=== PATIENT | female | born 1930 | race American Indian/Alaskan Native ===

== ENCOUNTER → 2017-05-31 | Outpatient (CLI) | payer MEDICARE, OTHER ==
--- NOTE | 2017-05-31 09:31 | PCVCIMAG ---
APPROVED REPORT Indications Stenosis Risk Factors Hypertension: Hyperlipidemia Surgery/Intervention Endarterectomy: right left Doppler Spectral Velocity Analysis PSV / EDVPSV / EDV ECA (R) 112 / 4 cm/sECA (L) 138 / 4 cm/s dICA (R) 94 / 19 cm/sdICA (L) 115 / 19 cm/s Parvez (R) 91 / 16 cm/smICA (L) 73 / 14 cm/s pICA (R) 98 / 9 cm/spICA (L) 89 / 10 cm/s Bulb (R) 99 / 7 cm/sBulb (L) 74 / 13 cm/s dCCA (R) 103 / 9 cm/sdCCA (L) 98 / 13 cm/s mCCA (R) 91 / 9 cm/smCCA (L) 90 / 9 cm/s Vert (R) 34 / 4 cm/sVert (L) 44 / 9 cm/s ICA/CCA 0.95ICA/CCA 1.17 Basic Measurements Blood Pressure: Pulses: Right Left RightLeft Brachial(Sitting) 128/58mmHgTemporal Real Time B-Mode Imaging Vert. (R)AntegradeVert. (L)Antegrade Findings The right carotid bulb has moderate calcified plaque. The right proximal internal carotid artery shows <40% stenosis. The right common carotid artery shows no significant stenosis. The right external carotid artery shows no significant stenosis. The left carotid bulb has moderate calcified plaque. The left proximal internal carotid artery shows <40% stenosis. The left common carotid artery shows no significant stenosis. The left external carotid artery shows no significant stenosis. Conclusion 1. Moderate plaquing bilaterally (<40% stenoses) 2. Antegrade vertebral flow 3. Changes consistent with bilateral carotid endarterectomies
--- NOTE | 2017-06-04 09:24 | PCVCIMAG ---
APPROVED REPORT Study performed: 05/31/2017 09:43:01 EXAM: Comprehensive 2D, Doppler, and color-flow Echocardiogram Patient Location: Echo lab Status: routine BSA: 1.74 HR: 76 bpmBP: 128/56 mmHg Rhythm: NSR Other Information Study Quality: Good Risk Factors: Cardiac Risk Factors: Hyperlipidemia, HTN, DM Indications Mitral Valve Disease ESRD 2D Dimensions LVEF(%): 70.00 (>50%) IVSd: 11.84 (7-11mm)LVOT Diam: 18.58 (18-24mm) LVDd: 39.76 mm PWd: 11.43 (7-11mm)Ascending Ao: 26.29 (22-36mm) LVDs: 22.01 (25-40mm) Left Atrium: 42.62 (27-40mm) Aortic Root: 22.99 mm LV Single Plane 4CH: 72.14 % LV Single Plane 2CH: 70.66 %Baltazar's LVEF: 71.40 % Biplane EF: 73.1 % Volumes Left Atrial Volume (Systole) Single Plane 4CH: 64.51 mLSingle Plane 2CH: 62.31 mL LA ESV Index: 38.00 mL/m2 Aortic Valve AoV Peak Eric.: 1.89 m/s AO Peak Gr.: 14.60 mmHgLVOT Max P.89 mmHg LVOT Max V: 0.94 m/s SANIA Vmax: 1.34 cm2 Mitral Valve MV Peak Gr.: 26.41 mmHg MV Mean Gr.: 14.21 mmHg MV Decel. Time: 355.83 ms MV Max Eric.: 2.55 m/s MV Mean Eric.: 1.79 m/s MV VTI: 704.36 mm MV PHT: 104.49 ms MVA (PHT): 2.11 cm2 TDI Medial E' Eric.: 0.05 m/s Lateral E' Eric.: 0.05 m/s Pulmonary Valve PV Peak Eric.: 1.09 m/sPV Peak Gr.: 4.82 mmHg Pulmonary Vein P Vein S: 0.66 m/sP Vein A: 0.34 m/s P Vein D: 0.45 m/sP Vein A Dur.: 114.2 msec P Vein S/D Ratio: 1.47 Tricuspid Valve RAP Estimate: 5.00 mmHg Left Ventricle The left ventricle is normal size. There is normal LV segmental wall motion. Borderline concentric left ventricular hypertrophy. Left ventricular systolic function is normal. The left ventricular ejection fraction is within the normal range. LVEF is 70%. This study is not technically sufficient to allow evaluation of the LV diastolic function. Right Ventricle The right ventricle is normal size. The right ventricular systolic function is normal. Atria Left atrium is mildly dilated. The right atrium size is normal. Aortic Valve Trileaflet aortic valve, moderately calcified No aortic regurgitation is present. There is no aortic valvular stenosis. Mitral Valve Severe mitral annular calcification. Mitral leaflet calcification Mild mitral regurgitation. Calculated mitral valve area is 2.1 cm2 with maximum pressure gradient of 26 mmHg and mean pressure gradient of 14 mmHg. Tricuspid Valve The tricuspid valve is normal in structure. There is no tricuspid valve regurgitation noted. Pulmonic Valve The pulmonary valve is normal in structure. There is no pulmonic valvular regurgitation. Great Vessels The aortic root is normal in size. IVC is normal in size and collapses with >50% inspiration Pericardium There is no pericardial effusion. <Conclusion> Left ventricular systolic function is normal. There is normal LV segmental wall motion. LVEF 70%. Left atrium is mildly dilated. Trileaflet aortic valve, moderately calcified. No aortic stenosis or insufficiency Severe mitral annular calcification. Mitral leaflet calcification. Moderately severe to severe mitral stenosis. Mild insufficiency Calculated mitral valve area is 2.1 cm2 with maximum pressure gradient of 26 mmHg and mean pressure gradient of 14 mmHg. Pulmonary artery pressure could not be reliably ascertained There is no pericardial effusion.
== END | disposition home or self-care (01) ==
LOC: PCVCIMAG 08:40
PROVIDERS: ATTEND Internal Medicine
DX: I65.23 Occlusion and stenosis of bilateral carotid arteries (principal); I34.0 Nonrheumatic mitral (valve) insufficiency; E78.5 Hyperlipidemia, unspecified; I12.0 Hypertensive chronic kidney disease with stage 5 chronic kidney disease or end stage renal disease; E11.22 Type 2 diabetes mellitus with diabetic chronic kidney disease; N18.5 Chronic kidney disease, stage 5; E03.9 Hypothyroidism, unspecified; I73.9 Peripheral vascular disease, unspecified; Z79.82 Long term (current) use of aspirin; Z79.899 Other long term (current) drug therapy; Z90.49 Acquired absence of other specified parts of digestive tract
CPT/HCPCS: 93306; 93880

== ENCOUNTER → 2017-06-14 | Outpatient (CLI) | payer MEDICARE | END | disposition home or self-care (01) | LOC: PCVCCLINIC 11:18 | PROVIDERS: ATTEND Internal Medicine | DX: I34.2 Nonrheumatic mitral (valve) stenosis (principal); I65.23 Occlusion and stenosis of bilateral carotid arteries; I12.0 Hypertensive chronic kidney disease with stage 5 chronic kidney disease or end stage renal disease; N18.5 Chronic kidney disease, stage 5; E78.5 Hyperlipidemia, unspecified; E03.9 Hypothyroidism, unspecified; I73.9 Peripheral vascular disease, unspecified; Z79.82 Long term (current) use of aspirin; Z79.899 Other long term (current) drug therapy; Z90.49 Acquired absence of other specified parts of digestive tract; Z90.12 Acquired absence of left breast and nipple; Z88.8 Allergy status to other drugs, medicaments and biological substances | CPT/HCPCS: G0463 ==

== ENCOUNTER → 2018-06-18 | Outpatient (CLI) | payer MEDICARE ==
--- NOTE | 2018-06-18 09:15 | PCVCIMAG ---
APPROVED REPORT Indications Stenosis Dizziness and Vertigo Risk Factors Hypertension: Hyperlipidemia Surgery/Intervention Endarterectomy: right left Doppler Spectral Velocity Analysis PSV / EDVPSV / EDV ECA (R) 104 / 2 cm/sECA (L) 157 / 6 cm/s dICA (R) 86 / 14 cm/sdICA (L) 104 / 20 cm/s Parvez (R) 94 / 14 cm/smICA (L) 104 / 18 cm/s pICA (R) 98 / 11 cm/spICA (L) 102 / 14 cm/s Bulb (R) 81 / 5 cm/sBulb (L) 81 / 11 cm/s dCCA (R) 77 / 10 cm/sdCCA (L) 100 / 11 cm/s mCCA (R) 83 / 2 cm/smCCA (L) 92 / 10 cm/s Vert (R) 50 / 0 cm/sVert (L) 34 / 5 cm/s ICA/CCA 1.27ICA/CCA 1.04 Basic Measurements Blood Pressure: Pulses: Right Left RightLeft Brachial(Sitting) 134/60mmHgTemporal Real Time B-Mode Imaging Vert. (R)AntegradeVert. (L)Antegrade Findings The right carotid bulb has mild plaque. The right proximal internal carotid artery shows <40% stenosis, prior CEA The right common carotid artery shows no significant stenosis. The right external carotid artery shows no significant stenosis. The left carotid bulb has mild-moderate plaque. The left proximal internal carotid artery shows <40% stenosis, prior CEA. The left common carotid artery shows no significant stenosis. The left external carotid artery shows no significant stenosis. Conclusion 1. Right internal carotid artery stenosis (<40%) 2. Left internal carotid artery stenosis (<40%) 3. Bilteral carotid endarterectomies 4. Antegrade vertebral flow
--- NOTE | 2018-06-18 09:25 | PCVCIMAG ---
APPROVED REPORT Study performed: 06/18/2018 08:21:02 EXAM: Comprehensive 2D, Doppler, and color-flow Echocardiogram Patient Location: Echo lab Status: routine BSA: 1.67 HR: 83 bpmBP: 134/60 mmHg Rhythm: NSR Other Information Study Quality: Adequate Risk Factors: Cardiac Risk Factors: HTN Indications mitral stenosis 2D Dimensions IVSd: 13.84 (7-11mm)LVOT Diam: 21.03 (18-24mm) LVDd: 33.84 mm PWd: 13.82 (7-11mm) LVDs: 25.21 (25-40mm) Left Atrium: 44.64 (27-40mm) Aortic Root: 28.37 mm LV Single Plane 4CH: 61.77 % LV Single Plane 2CH: 66.17 % Biplane EF: 65.1 % Volumes Left Atrial Volume (Systole) Single Plane 4CH: 98.43 mLSingle Plane 2CH: 108.08 mL LA ESV Index: 62.00 mL/m2 Aortic Valve AoV Peak Eric.: 2.23 m/s AO Peak Gr.: 19.90 mmHgLVOT Max P.72 mmHg AO Mean Gr.: 10.98 mmHgLVOT Mean P.38 mmHg AO V2 Mean: 1.58 m/sLVOT Max V: 1.09 m/s AO V2 VTI: 50.77 cmLVOT Mean V: 0.74 m/s SANIA (VTI): 1.71 [id number] V1 VTI: 24.94 cm SANIA Vmax: 1.69 cm2 SV (LVOT): 86.58 mL Mitral Valve MV Peak Gr.: 36.08 mmHg MV Mean Gr.: 18.16 mmHgE/A Ratio: 1.1 MV Decel. Time: 363.48 ms MV E Max Eric.: 2.29 m/s MV A Eric.: 2.10 m/s MV Max Eric.: 5.89 m/s MV Mean Eric.: 5.04 m/s MV VTI: 810.95 mm MVA VTI: 106.76 mm2 MV PHT: 121.57 ms MVA (PHT): 1.81 cm2 IVRT: 48.44 ms Pulmonary Valve PV Peak Eric.: 0.95 m/sPV Peak Gr.: 3.61 mmHg Pulmonary Vein P Vein S: 0.45 m/s P Vein D: 0.55 m/s P Vein S/D Ratio: 0.82 Tricuspid Valve TR Peak Eric.: 3.49 m/s TR Peak Gr.: 48.77 mmHg Left Ventricle The left ventricle is normal size. There is normal LV segmental wall motion. Mild concentric left ventricular hypertrophy. Left ventricular systolic function is normal. The left ventricular ejection fraction is within the normal range. LVEF is 65%. This study is not technically sufficient to allow evaluation of the LV diastolic function. Right Ventricle The right ventricle is normal size. The right ventricular systolic function is normal. Atria Left atrium is severely dilated. The right atrium size is normal. Aortic Valve The aortic valve is moderately sclerotic, mildly stenotic. No aortic regurgitation is present. Calculated aortic valve area is 1.7 cm2 with maximum pressure gradient of 20 mmHg and mean pressure gradient of 11 mmHg. Mitral Valve Mitral annular calcification is severe. Severe leaflet calcification. Moderate mitral regurgitation. Calculated mitral valve area is 1.1 cm2 with maximum pressure gradient of 36 mmHg and mean pressure gradient of 18 mmHg. Severe mitral stenosis Tricuspid Valve The tricuspid valve is normal in structure. Mild to moderate tricuspid regurgitation with PAP of 55 mmHg. Pulmonic Valve The pulmonary valve is normal in structure. There is no pulmonic valvular regurgitation. Great Vessels The aortic root is normal in size. IVC is normal in size and collapses >50% with inspiration. Pericardium There is no pericardial effusion. There is no pleural effusion. <Conclusion> Left ventricular systolic function is normal. There is normal LV segmental wall motion. LVEF 65%. Left atrium is severely dilated. The aortic valve is moderately sclerotic, mildly stenotic. Calculated aortic valve area is 1.7 cm2 with maximum pressure gradient of 20 mmHg and mean pressure gradient of 11 mmHg. Mitral annular calcification is severe. Severe leaflet calcification. Moderate mitral regurgitation. Calculated mitral valve area 1.1 cm2 (Peak pressure 36 mmHg and mean pressure gradient 18 mmHg). Severe mitral stenosis Mild to moderate tricuspid regurgitation with pulmonary artery pressure of 55 mmHg. There is no pericardial effusion.
== END | disposition home or self-care (01) ==
LOC: PCVCIMAG 10:25
PROVIDERS: ATTEND Internal Medicine
DX: I08.1 Rheumatic disorders of both mitral and tricuspid valves (principal); I65.23 Occlusion and stenosis of bilateral carotid arteries; I10 Essential (primary) hypertension; E78.5 Hyperlipidemia, unspecified; I12.9 Hypertensive chronic kidney disease with stage 1 through stage 4 chronic kidney disease, or unspecified chronic kidney disease; N18.5 Chronic kidney disease, stage 5; R42 Dizziness and giddiness; Z79.82 Long term (current) use of aspirin; Z79.899 Other long term (current) drug therapy
CPT/HCPCS: 80061; 93005; 93306; 93880; G0463

== ENCOUNTER → 2019-06-19 | Outpatient (CLI) | payer MEDICARE ==
--- NOTE | 2019-06-19 08:30 | PCVCIMAG ---
APPROVED REPORT Indications Stenosis Risk Factors Hypertension: Hyperlipidemia Diabetes Surgery/Intervention Endarterectomy: right left Doppler Spectral Velocity Analysis PSV / EDVPSV / EDV ECA (R) 78 / 5 cm/sECA (L) 108 / 0 cm/s dICA (R) 86 / 13 cm/sdICA (L) 94 / 24 cm/s Parvez (R) 87 / 15 cm/smICA (L) 82 / 14 cm/s pICA (R) 89 / 13 cm/spICA (L) 98 / 13 cm/s Bulb (R) 69 / 12 cm/sBulb (L) 77 / 13 cm/s dCCA (R) 81 / 10 cm/sdCCA (L) 66 / 11 cm/s mCCA (R) 70 / 12 cm/smCCA (L) 64 / 10 cm/s Vert (R) 106 / 22 cm/sVert (L) 84 / 14 cm/s ICA/CCA 1.10ICA/CCA 1.48 Basic Measurements Blood Pressure: Pulses: Right Left RightLeft Brachial(Sitting) 148/60mmHgTemporal Findings The right carotid bulb has mild calcified plaque. The right proximal internal carotid artery shows <40% stenosis. The right common carotid artery shows no significant stenosis. The right external carotid artery shows no significant stenosis. The left carotid bulb has moderate calcified plaque. The left proximal internal carotid artery shows <40% stenosis. The left common carotid artery shows no significant stenosis. The left external carotid artery shows no significant stenosis. Conclusion 1. Right internal carotid artery stenosis (<40%). 2. Left internal carotid artery stenosis (<40%) 3. Antegrade vertebral flow. Similar to June 18, 2018
--- NOTE | 2019-06-19 09:33 | PCVCIMAG ---
APPROVED REPORT Study performed: 06/19/2019 08:22:31 EXAM: Comprehensive 2D, Doppler, and color-flow Echocardiogram Patient Location: Echo lab Room #: 2Status: routine BSA: 1.65 HR: 80 bpmBP: 148/60 mmHg Rhythm: NSR Other Information Study Quality: Good Risk Factors: Cardiac Risk Factors: HTN, Hyperlipidemia, DM Indications Aortic Valve Disease Mitral Valve Disease Hypertension/HDD ESRD with dialysis 2D Dimensions IVSd: 10.54 (7-11mm)LVOT Diam: 20.70 (18-24mm) LVDd: 37.03 mm PWd: 10.22 (7-11mm)Ascending Ao: 20.75 (22-36mm) LVDs: 19.60 (25-40mm) Left Atrium: 40.48 (27-40mm) Aortic Root: 20.28 mm LV Single Plane 4CH: 50.10 % LV Single Plane 2CH: 55.05 % Biplane EF: 53.8 % Volumes Left Atrial Volume (Systole) Single Plane 4CH: 94.40 mLSingle Plane 2CH: 94.67 mL Biplane LA Volume: 95.00 mLLA ESV Index: 57.00 mL/m2 Aortic Valve AoV Peak Eric.: 2.48 m/s AO Peak Gr.: 27.83 mmHgLVOT Max P.20 mmHg AO Mean Gr.: 16.45 mmHgLVOT Mean P.05 mmHg AO V2 Mean: 1.98 m/sLVOT Max V: 0.92 m/s AO V2 VTI: 59.42 cmLVOT Mean V: 0.70 m/s SANIA (VTI): 1.32 [id number] V1 VTI: 23.37 cm SANIA Vmax: 1.25 cm2 SV (LVOT): 78.57 mL Mitral Valve MV Peak Gr.: 32.81 mmHg MV Mean Gr.: 17.25 mmHgE/A Ratio: 1.5 MV E Max Eric.: 3.48 m/s MV A Eric.: 2.36 m/s MV Max Eric.: 2.75 m/s MV Mean Eric.: 2.13 m/s MV VTI: 768.90 mm MVA VTI: 102.18 mm2 MV PHT: 66.26 ms MVA (PHT): 3.20 cm2 TDI E/Lateral E': 43.50E/Medial E': 87.00 Medial E' Eric.: 0.04 m/s Lateral E' Eric.: 0.08 m/s Pulmonary Valve PV Peak Eric.: 0.88 m/sPV Peak Gr.: 3.10 mmHg Pulmonary Vein P Vein S: 0.38 m/sP Vein A: 0.30 m/s P Vein D: 0.53 m/sP Vein A Dur.: 103.8 msec P Vein S/D Ratio: 0.72 Tricuspid Valve TR Peak Eric.: 3.56 m/s TR Peak Gr.: 50.81 mmHg TV Vmax: 0.68 m/sPA Pressure: 58.00 mmHg Left Ventricle The left ventricle is normal size. There is normal LV segmental wall motion. Borderline concentric left ventricular hypertrophy. The left ventricular systolic function is normal. The left ventricular ejection fraction is within the normal range. LVEF 55%. This study is not technically sufficient to allow evaluation of the LV diastolic function. Right Ventricle The right ventricle is normal size. The right ventricular systolic function is normal. Atria Left atrium is severely dilated. The right atrium size is normal. Aortic Valve Aortic valve is trileaflet, mild-moderately calcified. No aortic regurgitation is present. Moderate aortic stenosis. Calculated aortic valve area is 1.2 cm2 with maximum pressure gradient of 25 mmHg and mean pressure gradient of 17 mmHg. Mitral Valve Severe mitral annular calcification. Heavily calcified leaflets Moderate mitral regurgitation. Severe mitral stenosis. Calculated mitral valve area is 1.0 cm2 with maximum pressure gradient of 45 mmHg and mean pressure gradient of 19 mmHg. Tricuspid Valve The tricuspid valve is normal in structure. Moderate tricuspid regurgitation with a PA pressure of 55 mmHg. Moderate pulmonary hypertension. Pulmonic Valve The pulmonary valve is normal in structure. There is no pulmonic valvular regurgitation. Great Vessels The aortic root is normal in size. Aortic arch is not well visualized. The ascending aorta is normal in size. IVC is normal in size and collapses >50% with inspiration. Pericardium There is no pericardial effusion. There is no pleural effusion. <Conclusion> The left ventricular systolic function is normal. There is normal LV segmental wall motion. LVEF 55%. Left atrium is severely dilated. Aortic valve is trileaflet, mild-moderately calcified, moderately stenotic Calculated aortic valve area is 1.2 cm2 (Peak gradient of 25 mmHg and mean pressure gradient of 17 mmHg). Severe mitral annular calcification. Heavily calcified leaflets. Moderate mitral regurgitation. Severe mitral stenosis. Calculated mitral valve area is 1.0 cm2 (Peak gradient of 45 mmHg and mean pressure gradient of 19 mmHg). Moderate tricuspid regurgitation with a pulmonary artery pressure of 55 mmHg. There is no pericardial effusion.
== END | disposition home or self-care (01) ==
LOC: PCVCIMAG 07:46
PROVIDERS: ATTEND Internal Medicine
DX: I08.3 Combined rheumatic disorders of mitral, aortic and tricuspid valves (principal); N18.6 End stage renal disease; I12.0 Hypertensive chronic kidney disease with stage 5 chronic kidney disease or end stage renal disease; E11.22 Type 2 diabetes mellitus with diabetic chronic kidney disease; E03.9 Hypothyroidism, unspecified; E11.51 Type 2 diabetes mellitus with diabetic peripheral angiopathy without gangrene; E78.00 Pure hypercholesterolemia, unspecified; I27.20 Pulmonary hypertension, unspecified; E78.5 Hyperlipidemia, unspecified; Z99.2 Dependence on renal dialysis; Z86.2 Personal history of diseases of the blood and blood-forming organs and certain disorders involving the immune mechanism; Z88.8 Allergy status to other drugs, medicaments and biological substances; Z79.82 Long term (current) use of aspirin; Z79.899 Other long term (current) drug therapy; Z98.890 Other specified postprocedural states
CPT/HCPCS: 36415; 80061; 93005; 93306; 93880; G0463